=== PATIENT | female | born 1955 | race African-American/Black ===

== ENCOUNTER → 2020-10-22 | Day surgery (SDC) | payer OTHER ==
[~2020-10-22] MED LIST: AMLODIPINE BESY10 MG PO; CETIRIZINE HCL10 MG PO; CRESTOR20 MG PO; VITAMIN D2 PO; ZINC50 M1 PO
[2020-10-22 07:22] LABS: HCT 44.4 % (37.0-47.0); HGB 14.8 g/dl (12.5-16.0); MCH 28.7 pg (25.0-31.0); MCHC 33.3 g/dL (32.0-36.0); MPV 10.2 fL (6.0-9.5); RBC 5.16 M/uL (4.20-5.40); RDW 15.9 % (11.5-14.0); WBC 13.5 K/uL (4.0-10.5)
[2020-10-22 08:04] LABS: ALBUMIN 3.6 g/dL (3.4-5.0); BILIRUBIN - TOTAL 0.6 mg/dL (0.2-1.0); BUN/CREAT RATIO (CALC) 17.9 RATIO; CREATININE 0.78 mg/dL (0.51-0.95); GLOBULIN (CALCULATION) 3.8 g/dL; POTASSIUM 3.8 mmol/L (3.5-5.1); TOTAL PROTEIN 7.4 g/dL (6.4-8.2)
== END | disposition home or self-care (01) ==
LOC: FAS 06:46
PROVIDERS: Surgery
DX: K63.5 Polyp of colon (principal); K57.30 Diverticulosis of large intestine without perforation or abscess without bleeding; I10 Essential (primary) hypertension; E78.00 Pure hypercholesterolemia, unspecified; F17.210 Nicotine dependence, cigarettes, uncomplicated; Z90.49 Acquired absence of other specified parts of digestive tract; Z90.710 Acquired absence of both cervix and uterus; Z98.890 Other specified postprocedural states; Z88.0 Allergy status to penicillin; Z79.899 Other long term (current) drug therapy; Z20.822 Contact with and (suspected) exposure to COVID-19
CPT/HCPCS: 36415; 80053; J1610; J2704; J7120